=== PATIENT | female | born 1955 | race Caucasian/White ===

== ENCOUNTER 2021-04-08 10:14 | Emergency (ER) | payer OTHER ==
[~2021-04-08] VITALS: Ht 170.2 cm; Wt 54.4 kg
[~2021-04-08 10:14] MED LIST: ASCO-310 PO; MULT-754 PO
--- NOTE | 2021-04-08 10:30 | NUR ---
BIB SON C/O NONRADIATING LEFT LOWER ABDOMINAL PAIN X LAST NIGHT, EXACERBATED BY MOVEMENT, PULLING SENSATION 4/10. ADMITS NAUSEA, CHILLS. DENIES VOMITING, FEVER. DENIES TROUBLE URINATING. NORMAL BM. HX DM. A&0X4, AMBULATORY, HANDS ARE COLD TO TOUCH. ABNDOMEN NONTENDER TO PALPATION. ATTACHED TO MONITOR.
--- NOTE | 2021-04-08 10:36 | NUR ---
DR MCCANN AT BEDSIDE
--- NOTE | 2021-04-08 10:55 | NUR ---
blood sample obtained and sent to lab
[2021-04-08 11:21] LABS: BASOPHILS % (AUTO) 0.2 % (0.0-2.0); HEMATOCRIT 45 % (33-45); HEMOGLOBIN 15.2 g/dL (11.5-14.8); LYMPHOCYTES # (AUTO) 1.1 K/uL (0.8-4.8); LYMPHOCYTES % (AUTO) 18.1 % (20.0-44.0); MEAN CORPUSCULAR HGB CONC 34 g/dl (31.0-36.0); MEAN CORPUSCULAR VOLUME 92 fL (82-100); MONOCYTES # (AUTO) 0.4 K/uL (0.1-1.30); MONOCYTES % (AUTO) 7.3 % (2.0-12.0); NEUTROPHILS # (AUTO) 4.5 K/uL (1.8-8.9); NEUTROPHILS % (AUTO) 74.4 % (43.0-81.0); PLATELET COUNT (AUTO) 218 K/uL (150-450); RED BLOOD CELL COUNT(AUTO) 4.87 MIL/uL (4.0-5.2)
[2021-04-08 11:34] LABS: ALBUMIN 3.1 g/dL (3.4-5.0); BILIRUBIN,DIRECT 0.2 mg/dL (0.0-0.2); BILIRUBIN,TOTAL 0.7 mg/dL (0.2-1.0); CALCIUM, SERUM 8.2 mg/dL (8.5-10.1); CREATININE 0.8 mg/dL (0.6-1.3); POTASSIUM 3.6 mmol/L (3.5-5.1); TOTAL PROTEIN, SERUM 7.3 g/dL (6.4-8.2)
--- NOTE | 2021-04-08 12:42 | NUR ---
COVID SWAB DONE AND SENT
--- NOTE | 2021-04-08 12:42 | NUR ---
IV removed. Catheter intact and site benign. Pressure and 4x4 applied to site. No bleeding noted.Patient discharged to home in stable condition. Written and verbal after care instructions given. Patient verbalizes understanding of instruction.
[2021-04-08 12:54] VITALS: BP 143/69
== END 2021-04-08 12:54 | disposition home or self-care (01) ==
LOC: ER 10:19
DX: R10.30 Lower abdominal pain, unspecified (principal); R11.0 Nausea; R91.8 Other nonspecific abnormal finding of lung field; Z20.822 Contact with and (suspected) exposure to COVID-19; K76.0 Fatty (change of) liver, not elsewhere classified; K44.9 Diaphragmatic hernia without obstruction or gangrene; E89.0 Postprocedural hypothyroidism
CPT/HCPCS: 36415; 74176; 80048; 80076; 83690; 85025; 87426; 99284; C9803

== ENCOUNTER 2021-04-11 10:59 | Emergency (ER) | payer OTHER ==
[~2021-04-11] VITALS: Ht 167.6 cm; Wt 79.4 kg
--- NOTE | 2021-04-11 11:25 | NUR ---
AT PT'S BEDSIDE
[2021-04-11] MEDS ORDERED: IV NS 0.9% 1,000 ML BAG IV ONE (11:30)
--- NOTE | 2021-04-11 11:33 | NUR ---
BS 379; COLBY DUBON AWARE
--- NOTE | 2021-04-11 11:50 | NUR ---
RAC #20 S/L; PATENT AND INTACT. IVF NS INFUSING BLOOD WORK DRAWN AND SENT TO LAB
--- NOTE | 2021-04-11 11:55 | NUR ---
PT NOTED WITH DRY COUGH; OSAT AT 99% R/A
[2021-04-11] MEDS ORDERED: GLIM4TAB37 PO (11:57)
[2021-04-11] MEDS ORDERED: CARV12.52 PO (11:57)
[2021-04-11] MEDS ORDERED: LOSA50TA39 PO (11:57)
[2021-04-11] MEDS ORDERED: SITA100T PO (11:57)
[2021-04-11] MEDS ORDERED: INSU100I14 SQ (11:57)
[2021-04-11] MEDS ORDERED: DAPA5TAB PO (11:57)
[2021-04-11] MEDS ORDERED: ROSU5TAB13 PO (11:57)
[2021-04-11] MEDS ORDERED: METF-440 PO (11:57)
[2021-04-11] MEDS ORDERED: MELO-107 PO (11:57)
--- NOTE | 2021-04-11 12:05 | NUR ---
OFFERED TOILETING TO THE PT; PT UNABLE TO URINATE AT THIS TIME WILL TRY AGAIN LATER
--- NOTE | 2021-04-11 12:12 | NUR ---
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
--- NOTE | 2021-04-11 12:19 | NUR ---
UPON EXERTION FROM WALK DESAT TO 90% ON R/A; PUT ON O2 3LPM VIA N/C TOLERATING AT 94%
--- NOTE | 2021-04-11 12:20 | NUR ---
BIB SON C/O WORSENING WEAKNESS AND DIZZINESS SINCE MONDAY; OVERALL WEAKNESS [id number]. PT A/OX4. ON R/A TOLERATING WELL. CONNECTED PT TO POX AND MONITOR. SON AT PTS BEDSIDE
--- NOTE | 2021-04-11 12:21 | NUR ---
PT DID NOT TAKE HOME MEDS; EDILSON DUBON AWARE
[2021-04-11 12:35] LABS: ALBUMIN 2.9 g/dL (3.4-5.0); BILIRUBIN,DIRECT 0.2 mg/dL (0.0-0.2); BILIRUBIN,TOTAL 0.6 mg/dL (0.2-1.0); CALCIUM, SERUM 8.9 mg/dL (8.5-10.1); CREATININE 0.8 mg/dL (0.6-1.3); POTASSIUM 3.6 mmol/L (3.5-5.1); TOTAL PROTEIN, SERUM 7.6 g/dL (6.4-8.2)
[2021-04-11 12:59] LABS: BASOPHILS % (AUTO) 0.1 % (0.0-2.0); EOSINOPHILS % (AUTO) 0.1 % (0.0-6.0); HEMATOCRIT 44 % (33-45); LYMPHOCYTES % (AUTO) 13.7 % (20.0-44.0); MEAN CORPUSCULAR HGB CONC 34 g/dl (31.0-36.0); MEAN CORPUSCULAR VOLUME 91 fL (82-100); MONOCYTES # (AUTO) 0.6 K/uL (0.1-1.30); MONOCYTES % (AUTO) 8.1 % (2.0-12.0); NEUTROPHILS # (AUTO) 5.7 K/uL (1.8-8.9); PLATELET COUNT (AUTO) 375 K/uL (150-450); RED BLOOD CELL COUNT(AUTO) 4.83 MIL/uL (4.0-5.2); WHITE BLOOD COUNT (AUTO) 7.4 K/uL (4.3-11.0)
--- NOTE | 2021-04-11 13:00 | NUR ---
DR BOWMAN AWARE THAT THE PATIENT UNABLE TO PROVIDE URINE.
--- NOTE | 2021-04-11 13:56 | NUR ---
The patient is alert and oriented x3. IV removed. Catheter intact and site benign. Pressure and 4x4 applied to site. No bleeding noted.Patient discharged to home in stable condition. Written and verbal after care instructions given. Patient and son verbalize understanding of instruction. Patient is picked up by son.
[2021-04-11 13:57] VITALS: BP 141/80
== END 2021-04-11 13:58 | disposition home or self-care (01) ==
LOC: ER 11:01
DX: E11.65 Type 2 diabetes mellitus with hyperglycemia (principal); R00.0 Tachycardia, unspecified; I10 Essential (primary) hypertension; Z90.89 Acquired absence of other organs; Z79.4 Long term (current) use of insulin; Z79.899 Other long term (current) drug therapy
CPT/HCPCS: 36415; 71045; 80048; 80076; 82962 ×2; 83690; 85025; 93005; 96360; 99285; J7030